=== PATIENT | female | born 1940 | race Caucasian/White ===

== ENCOUNTER 2021-06-29 21:53 | Observation (INO) | payer MEDICARE, MEDICAID ==
[~2021-06-29] VITALS: Ht 157.5 cm; Wt 117.2 kg
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
--- NOTE | 2021-06-29 22:25 | NUR ---
ADMITTING MD AT .
[2021-06-29 22:41] LABS: TROPONIN I < 0.015 ng/mL (0.000-0.045)
--- NOTE | 2021-06-29 22:50 | NUR ---
ASSISTED PT UP TO [facility] [place]. PT VOIDED WITHOUT DIFFICULTY.
[2021-06-29] MEDS ORDERED: NITROGLYCERIN 0.4 MG BOTTLE (25 TABS) SL PRN (23:00)
[2021-06-29] MEDS ORDERED: POLYETHYLENE GLYCOL 17 GM PACKET PO PRN (23:00)
[2021-06-29] MEDS ORDERED: NITROGLYCERIN 0.4 MG/SPRAY SL PRN (23:00)
[2021-06-29] MEDS ORDERED: GUAIFENESIN/DM 200-20MG, 10ML UDC PO PRN (23:00)
[2021-06-29] MEDS ORDERED: ONDANSETRON 2MG/ML, 2ML IVPush PRN (23:00)
[2021-06-29] MEDS ORDERED: MAALOX/HYOSCYAMINE/LIDOCAINE 45 ML BTL PO ONE (23:00)
[2021-06-29] MEDS ORDERED: ACETAMINOPHEN 500 MG TABLET PO PRN (23:00)
[2021-06-29] MEDS ORDERED: LABETALOL 5MG/ML, 20ML IVPush PRN (23:00)
[2021-06-29] MEDS ORDERED: MELATONIN 5 MG TABLET PO PRN (23:00)
[2021-06-29] MEDS ORDERED: ASCORBIC ACID PO (23:20)
[2021-06-29] MEDS ORDERED: POTA20TA14 PO (23:20)
[2021-06-29] MEDS ORDERED: ASPI-963 PO (23:20)
[2021-06-29] MEDS ORDERED: GABA300C PO (23:20)
[2021-06-29] MEDS ORDERED: FURO20TA3 PO (23:20)
[2021-06-29] MEDS ORDERED: MULT-658 PO (23:20)
[2021-06-29] MEDS ORDERED: HYDR-2214 PO (23:20)
[2021-06-29] MEDS ORDERED: METO-93 PO (23:20)
[2021-06-29] MEDS ORDERED: OMEP-110 PO (23:20)
[2021-06-29] MEDS ORDERED: ATOR20TA37 PO (23:20)
[2021-06-29] MEDS ORDERED: LEVO125T5 PO (23:20)
[2021-06-29] MEDS ORDERED: ALBU0.63 NEB (23:20)
[2021-06-29] MEDS ORDERED: FLUT1AER INH (23:20)
[2021-06-29] MEDS ORDERED: FAMOTIDINE 20 MG/2 ML ONE (23:22)
[2021-06-29] MEDS ORDERED: ENOXAPARIN 40 MG/0.4 ML ONE (23:22)
[2021-06-29] MEDS ORDERED: MAALOX/HYOSCYAMINE/LIDOCAINE 45 ML BTL ONE (23:22)
[2021-06-29] MEDS: ENOXAPARIN 40 MG/0.4 ML SQ SCH (23:25)
[2021-06-29] MEDS: FAMOTIDINE 20 MG/2 ML IVPush SCH (23:26)
[2021-06-29 23:31] LABS: FREE T4 (FREE THYROXINE) 0.78 ng/dL (0.76-1.46)
[2021-06-29] MEDS ORDERED: ASCO500T7 PO (23:32)
[2021-06-29] MEDS ORDERED: VITAMIN D PO (23:32)
[2021-06-29] MEDS ORDERED: [UNRECOGNIZED DRUG - OTHER] PO (23:34)
--- NOTE | 2021-06-29 23:35 | NUR ---
PT MEDICATED PER ORDERS. UNDERSTANDS PLAN FOR ADMISSION.
[2021-06-30] MEDS ORDERED: FUROSEMIDE 40 MG/4 ML IV ONE
[2021-06-30] MEDS ORDERED: POTASSIUM CHLORIDE 20 MEQ TAB.ER.PRT PO ONE
[2021-06-30 00:56] VITALS: BP 115/72
[2021-06-30 00:59] VITALS: BP 115/72
[2021-06-30] MEDS ORDERED: HYDROcodone/APAP 5/325 TABLET ONE (02:41)
[2021-06-30] MEDS: HYDROcodone/APAP 5/325 TABLET PO SCH ×2 (02:43→20:24)
[2021-06-30] MEDS: ACETAMINOPHEN 325 MG TABLET PO PRN (04:45)
[2021-06-30 05:24] LABS: BASOPHILS % (AUTO) 1 % (0-1); EOSINOPHILS % (AUTO) 7 % (1-7); LYMPHOCYTES % (AUTO) 31 % (22-44); MEAN CORPUSCULAR HEMOGLOBIN 32.3 pg (27.0-34.8); MEAN CORPUSCULAR HGB CONC 33.9 g/dL (32.4-35.8); MEAN PLATELET VOLUME 9.2 fL (7.4-10.4); MONOCYTES % (AUTO) 11 % (2-9); NEUTROPHILS % (AUTO) 51 % (42-75); PLATELET COUNT 139 x10^3/uL (130-400); RED BLOOD COUNT 4.43 x10^6/uL (3.82-5.3); RED CELL DISTRIBUTION WIDTH 14.5 % (9.6-15.2)
[2021-06-30 05:27] LABS: ANION GAP 6 mmol/L (5-15); CALCIUM 8.5 mg/dL (8.5-10.1); CHLORIDE 104 mmol/L (98-107); CREATININE 0.66 mg/dL (0.55-1.02)
[2021-06-30 05:31] LABS: TROPONIN I < 0.015 ng/mL (0.000-0.045)
[2021-06-30 08:01] VITALS: BP_SYST 121; BP_SYST 137; BP_DIAS 81; BP_DIAS 99
[2021-06-30] MEDS ORDERED: ALBUTEROL SULFATE 2.5 MG/3 ML NEB PRN (08:30)
[2021-06-30] MEDS: FUROSEMIDE 40 MG TABLET PO SCH (08:51)
[2021-06-30] MEDS: LEVOTHYROXINE 125 MCG TABLET PO SCH (08:51)
[2021-06-30] MEDS: ASPIRIN 81 MG TABLET EC PO SCH (08:51)
[2021-06-30] MEDS: METOPROLOL SUCCINATE 50 MG TAB.ER.24H PO SCH (08:51)
[2021-06-30] MEDS: POTASSIUM CHLORIDE 20 MEQ TAB.ER.PRT PO SCH (08:51)
[2021-06-30] MEDS: FAMOTIDINE 20 MG/2 ML IVPush SCH ×2 (08:52→20:23)
[2021-06-30] MEDS ORDERED: OMNIPAQUE 350 MG/ML, 100ML BOTTLE ONE (09:45)
[2021-06-30 10:37] VITALS: BP 143/84
[2021-06-30] MEDS: FLUTICASONE/VILANTEROL 100-25MCG/INH INH SCH (10:40)
[2021-06-30] MEDS: morphine SULFATE 10 MG/ML, 1ML IVPush PRN ×2 (10:41→20:24)
[2021-06-30] MEDS: ALBUTEROL/IPRATROPIUM 2.5MG/0.5MG, 3 ML NPPB SCH ×3 (10:56→19:48)
[2021-06-30] MEDS ORDERED: BUDESONIDE 0.5 MG/2 ML INHA NPPB SCH (11:00)
[2021-06-30 14:49] VITALS: BP 131/78
[2021-06-30 20:28] VITALS: BP 145/81
[2021-06-30] MEDS ORDERED: ATORVASTATIN 10 MG TABLET PO SCH (21:00)
[2021-06-30] MEDS: ENOXAPARIN 40 MG/0.4 ML SQ SCH (23:07)
[2021-07-01 01:05] VITALS: BP 143/73
[2021-07-01 07:59] VITALS: BP 118/72
[2021-07-01] MEDS: ASPIRIN 81 MG TABLET EC PO SCH (08:04)
[2021-07-01] MEDS: FLUTICASONE/VILANTEROL 100-25MCG/INH INH SCH (08:04)
[2021-07-01] MEDS: POTASSIUM CHLORIDE 20 MEQ TAB.ER.PRT PO SCH (08:04)
[2021-07-01] MEDS: METOPROLOL SUCCINATE 50 MG TAB.ER.24H PO SCH (08:04)
[2021-07-01] MEDS: HYDROcodone/APAP 5/325 TABLET PO SCH (08:04)
[2021-07-01] MEDS: LEVOTHYROXINE 125 MCG TABLET PO SCH (08:04)
[2021-07-01] MEDS: FUROSEMIDE 40 MG TABLET PO SCH (08:05)
[2021-07-01] MEDS: FAMOTIDINE 20 MG/2 ML IVPush SCH (08:18)
[2021-07-01] MEDS ORDERED: REGADENOSON 0.4 MG/5 ML SYRINGE ONE (09:39)
[2021-07-01 13:56] VITALS: BP 115/54
[2021-07-01] MEDS: ACETAMINOPHEN 325 MG TABLET PO PRN (16:21)
== END 2021-07-01 16:45 | disposition home or self-care (01) ==
LOC: EDBD 21:53 → ED 06-30 00:24 → CCU 06-30 00:26 → 5SO 06-30 00:27
PROVIDERS: ADMIT Internal Medicine; ATTEND Family Medicine
DX: R07.89 Other chest pain (principal); I25.10 Atherosclerotic heart disease of native coronary artery without angina pectoris; I10 Essential (primary) hypertension; E87.6 Hypokalemia; R60.0 Localized edema; J96.11 Chronic respiratory failure with hypoxia; J44.9 Chronic obstructive pulmonary disease, unspecified; G47.33 Obstructive sleep apnea (adult) (pediatric); E66.01 Morbid (severe) obesity due to excess calories; E78.5 Hyperlipidemia, unspecified; I25.2 Old myocardial infarction; M79.7 Fibromyalgia; K43.9 Ventral hernia without obstruction or gangrene; K76.89 Other specified diseases of liver; E03.9 Hypothyroidism, unspecified; S46.001D Unspecified injury of muscle(s) and tendon(s) of the rotator cuff of right shoulder, subsequent encounter; X58.XXXD Exposure to other specified factors, subsequent encounter; Z95.5 Presence of coronary angioplasty implant and graft; Z68.42 Body mass index [BMI] 45.0-49.9, adult; Z88.0 Allergy status to penicillin; Z79.899 Other long term (current) drug therapy
CPT/HCPCS: 36415; 71275; 78452; 80048; 83735; 84439; 84443; 84481; 84484; 85025; 93005; 93017; 93306; 94640; 96372; 96374; 96375; 96376; 97161; 99284; A9502; G0378; J1650; J1940; J2270; J2785; J7626; Q9967